=== PATIENT | female | born 1970 | race Caucasian/White ===

== ENCOUNTER → 2024-01-23 06:22 | Day surgery (SDC) | payer BC, SELFPAY | LOC: GI 06:22 | PROVIDERS: ATTENDING PHYSICIAN Internal Medicine Gastroenterology | DX: Z12.11 Encounter for screening for malignant neoplasm of colon (principal); K64.0 First degree hemorrhoids; Z98.890 Other specified postprocedural states; K63.89 Other specified diseases of intestine; D12.0 Benign neoplasm of cecum; D12.2 Benign neoplasm of ascending colon; Z86.010 Personal history of colon polyps | CPT/HCPCS: 45385; 88305 ==

== ENCOUNTER → 2024-09-24 07:26 | Outpatient (REF) | payer BC, SELFPAY | LOC: HWWDC 07:26 | PROVIDERS: ATTENDING PHYSICIAN Obstetrics & Gynecology; FAMILY PHYSICIAN Family Medicine | DX: Z12.31 Encounter for screening mammogram for malignant neoplasm of breast (principal) | CPT/HCPCS: 77063; 77067 ==

== ENCOUNTER → 2024-10-05 08:39 | Outpatient (REF) | payer BC, SELFPAY | LOC: WDC 08:39 | PROVIDERS: ATTENDING PHYSICIAN Obstetrics & Gynecology; FAMILY PHYSICIAN Family Medicine | DX: R92.8 Other abnormal and inconclusive findings on diagnostic imaging of breast (principal) | CPT/HCPCS: 77065 ==